=== PATIENT | female | born 1930 | race Caucasian/White ===

== ENCOUNTER 2016-07-22 08:22 | Day surgery (SDC) | payer OTHER, BC ==
[~2016-07-22] VITALS: Ht 144.8 cm; Wt 65.2 kg
[~2016-07-22 08:22] MED LIST: AMLODIPINE BESY10 MG PO; CHOLESTEROL; DIOVAN320 MG PO; LANSOPRAZOLE30 MG PO; PRAVACHOL80 MG PO; [UNRECOGNIZED DRUG - OTHER]
[2016-07-22] MEDS ORDERED: ASPIRIN325 MG PO (09:13)
[2016-07-22 09:16] VITALS: BP 173/79
[2016-07-22 09:45] LABS: HEMATOCRIT 40.4 % (36.0-46.0); MCH 31.4 PG (29.0-34.0); MCHC 34.4 G/DL (30.0-36.0); MCV 91.4 FL (83-99); MEAN PLAT.VOLUME 9.9 uM^3 (9.5-12.4); PLATELET COUNT 259 K/uL (156-360); RBC DIS.WIDTH-SD 43.8 % (39-53); RED BLOOD COUNT 4.42 M/uL (3.80-5.20); WHITE BLOOD COUNT 7.8 K/uL (4.1-10.2)
[2016-07-22 10:17] LABS: ANION GAP 12 MEQ/L (2-14); CHLORIDE 104 MEQ/L (99-109); POTASSIUM 3.1 MEQ/L (3.7-5.4); SAMPLE HEMOLYSIS CHECK 0; SAMPLE ICTERIC CHECK 0; SAMPLE LIPEMIA CHECK 0; SODIUM 141 MEQ/L (136-147)
[2016-07-22 10:23] LABS: GFR ESTIMATE (CALCULATED) > 59 mL/min/; GLUCOSE 137 mg/dL (70-99); UREA NITROGEN (BUN) 14 mg/dL (9-23)
[2016-07-22 13:35] VITALS: BP 132/66
[2016-07-22 14:20] VITALS: BP 136/61
== END 2016-07-22 14:30 | disposition home or self-care (01) ==
LOC: SDC 08:22
PROVIDERS: Otolaryngology
PROC: 09C4XZZ Extirpation of Matter from Left External Auditory Canal, External Approach (ICD-10-PCS; principal; 2016-07-22)
DX: T16.2XXA Foreign body in left ear, initial encounter (principal); X58.XXXA Exposure to other specified factors, initial encounter; I10 Essential (primary) hypertension; K21.9 Gastro-esophageal reflux disease without esophagitis
CPT/HCPCS: 80048; 85027; J0131; J0171; J0690; J1100; J2405; J3010; J7050